=== PATIENT | female | born 1975 | race Caucasian/White ===

== ENCOUNTER 2017-04-29 07:16 | Emergency (ER) | payer OTHER ==
[2017-04-29 07:47] LABS: BILIRUBIN,URINE NEGATIVE (NEGATIVE)
[2017-04-29 07:48] LABS: HCG UR QUAL NEGATIVE; UA CHARGE (STRIP ONLY) YES; UR CULTURE IF IND NOT INDICATED
[2017-04-29] MEDS ORDERED: SODIUM CHLORIDE 0.9% 1,000 ML IV ONE (08:03)
[2017-04-29] MEDS ORDERED: HYDROmorphone 1 MG/ML SYRINGE IM STA (08:03)
[2017-04-29] MEDS ORDERED: ONDANSETRON 4 MG/2 ML VIAL IVP STA (08:03)
[2017-04-29] MEDS ORDERED: DICYCLOMINE 10 MG CAPSULE PO STA (08:04)
--- NOTE | 2017-04-29 08:07 | ED Physician Documentation ---
History of Present Illness - Stated complaint Stated Complaint: STOMACH PAIN,CHEST PAIN - Chief complaint Chief Complaint: General - History obtained from History obtained from: Patient - Additonal information Additional information: This patient is a 41-year-old female who is with a complaint of bilateral lower quadrant abdominal pain, nausea, and diarrhea. She has had these symptoms off and on for 10 years however more recently they have become more frequent. In the past the were on a monthly basis now she is getting them every week and had a particularly bad episode this morning. The pain is all lower located bilaterally in the lower quadrants. This pain is not associated with her menses usually although she does have a history of painful menses historically. These episodes are usually associated with mild to moderate diarrhea. She has never had nausea or vomiting with them. She denies any upper abdominal pain. She does not have any ear nose and throat symptoms. There is no chest pain or shortness of breath. There is no complaints of fever. She has no complaints of dysuria, hesitancy, frequency or gynecologic complaints such as dyspareunia or discharge. She saw a primary care physician recently and is currently in the process of getting a colonoscopy scheduled. Her father has Crohn's disease and she is concerned about this possibility. Review of systems: For pertinent positive and negatives in the review of systems please see the history of present illness, otherwise all other systems have been reviewed and are negative. Berenice disclaimer: Parts of this medical record were created using voice recognition technology. Because of the inherent limitations of this system, occasional same sounding word substitutions do occur and persist despite proofreading. Please read the document for context. Review of Systems Ten Systems: 10 systems reviewed and negative Constitutional: denies: Fever GI: reports: Abdominal Pain, Nausea, Diarrhea. denies: Abdominal Swelling, Vomiting, Constipation, Hematemesis, Bloody / black stool : denies: Dysuria, Frequency PD PAST MEDICAL HISTORY - Past Medical History Past Medical History: No - Past Surgical History Past Surgical History: Yes HEENT: Tonsil/Adenoidectomy - Present Medications Home Medications: Ambulatory Orders Medication Instructions Recorded Confirmed No Known Home Medications [No 04/29/17 04/29/17 Known Home Medications] - Allergies Allergies/Adverse Reactions: Allergies Allergy/AdvReac Type Severity Reaction Status Date / Time No Known Drug Allergies Allergy Verified 04/29/17 07:23 - Social History Does the pt smoke?: No Smoking Status: Never smoker Does the pt drink ETOH?: No Does the pt have substance abuse?: No Results - Vitals Vitals: Vital Signs - 24 hr 04/29/17 07:20 Temperature 36.4 C L Heart Rate 87 Respiratory 18 Rate Blood Pressure 132/78 H O2 Saturation 98 Oxygen O2 Source Room air - Labs Labs: Laboratory Tests 04/29/17 07:30 Urine Color YELLOW Urine Clarity CLEAR Urine pH 7.0 Ur Specific [place] 1.010 Urine Protein NEGATIVE Urine Glucose (UA) NEGATIVE Urine Ketones NEGATIVE Urine Occult Blood NEGATIVE Urine Nitrite NEGATIVE Urine Bilirubin NEGATIVE Urine Urobilinogen 0.2 (NORMAL) Ur Leukocyte Esterase NEGATIVE Ur Microscopic Review NOT INDICATED Urine Culture Comments NOT INDICATED Urine HCG, Qual NEGATIVE
[2017-04-29] MEDS ORDERED: HYDROmorphone 1 MG/ML SYRINGE IVP STA (08:08)
[2017-04-29] MEDS ORDERED: DICYCLOMINE 10 MG CAPSULE PO ONE (08:18)
--- NOTE | 2017-04-29 09:43 | Ultrasound Report ---
REVISED: THIS REPORT WAS ORIGINALLY SIGNED ON 04/29/2017 @ 0933. ORDERS LINKED ON 05/04/2017. PELVIC ULTRASOUND: 04/29/2017 CLINICAL INDICATION: Lower quadrant pain. TECHNIQUE: Transabdominal pelvic ultrasound performed for global evaluation. Transvaginal pelvic ultrasound performed for detailed evaluation. Real-time scanning performed and static images obtained. FINDINGS: The uterus is anteverted, measuring 10.3 x 7.0 x 6.2 cm. The endometrial echo complex measures 10 mm. Multiple leiomyomas are present. Posteriorly, there is a 4.4 x 4.2 x 3.6 cm intramural leiomyoma, and anteriorly , there is a 3.2 x 3.1 x 2.8 cm intramural leiomyoma. The ovaries are normal, with the right measuring 3.0 x 2.5 x 2.1 cm and the left measuring 3.8 x 2.5 x 2.0 cm. Trace free fluid is present. IMPRESSION: LEIOMYOMATOUS UTERUS. NORMAL OVARIES. TRACE FREE FLUID. JOB #: [id number] EXT JOB #: [id number] FELISA
[2017-04-29 11:37] VITALS: BP 130/55
== END 2017-04-29 11:37 | disposition home or self-care (01) ==
LOC: ED 07:16
DX: R10.32 Left lower quadrant pain (principal); R10.31 Right lower quadrant pain; D25.9 Leiomyoma of uterus, unspecified; R19.7 Diarrhea, unspecified
CPT/HCPCS: 76830; 76856; 81003; 81025; 93005; 99283; A9270; 80053; 81001; 83690; 85025; 87086

== ENCOUNTER 2017-07-12 07:13 | Outpatient (CLI) | payer OTHER ==
[2017-07-12 07:35] LABS: BASOPHILS # (AUTO) 0.1 10^3/uL (0.0-0.1); BASOPHILS % (AUTO) 0.9 %; EOSINOPHILS # (AUTO) 0.2 10^3/uL (0.0-0.7); EOSINOPHILS % (AUTO) 3.2 %; HCT - HEMATOCRIT 37.7 % (37.0-47.0); HGB - HEMOGLOBIN 12.7 g/dL (12.0-16.0); LYMPHOCYTES # (AUTO) 2.1 10^3/uL (1.5-3.5); LYMPHOCYTES % (AUTO) 28.5 %; MEAN CORPUSCULAR HGB CONC 33.6 g/dL (32.0-36.0); MEAN CORPUSCULAR VOLUME 83.3 fL (81.0-99.0); MEAN PLATELET VOLUME 9.1 fL (7.9-10.8); MONOCYTES # (AUTO) 0.6 10^3/uL (0.0-1.0); MONOCYTES % (AUTO) 8.2 %; NEUTROPHILS # (AUTO) 4.4 10^3/uL (1.5-6.6); NEUTROPHILS % (AUTO) 59.2 %; NUCLEATED RED BLOOD CELLS AUTO 0.1 /100WBC; RED BLOOD COUNT 4.52 10^6/uL (4.20-5.40); RED CELL DISTRIBUTION WIDTH 14.2 % (12.0-15.0); UNCORRECTED WHITE BLOOD COUNT 7.5 x10^3/uL; WHITE BLOOD COUNT 7.5 x10^3/uL (4.8-10.8)
== END 2017-07-12 07:14 | disposition home or self-care (01) ==
LOC: LAB 07:13
PROVIDERS: ATTEND Obstetrics & Gynecology
DX: Z13.0 Encounter for screening for diseases of the blood and blood-forming organs and certain disorders involving the immune mechanism (principal)
CPT/HCPCS: 36415; 85025

== ENCOUNTER 2017-08-09 11:37 | Outpatient (CLI) | payer OTHER ==
[2017-08-09 12:08] LABS: BASOPHILS # (AUTO) 0.1 10^3/uL (0.0-0.1); BASOPHILS % (AUTO) 0.9 %; EOSINOPHILS # (AUTO) 0.2 10^3/uL (0.0-0.7); EOSINOPHILS % (AUTO) 2.2 %; HCT - HEMATOCRIT 37.4 % (37.0-47.0); HGB - HEMOGLOBIN 12.4 g/dL (12.0-16.0); LYMPHOCYTES # (AUTO) 2.1 10^3/uL (1.5-3.5); MEAN CORPUSCULAR HEMOGLOBIN 27.3 pg (27.0-31.0); MEAN CORPUSCULAR HGB CONC 33.2 g/dL (32.0-36.0); MEAN CORPUSCULAR VOLUME 82.3 fL (81.0-99.0); MEAN PLATELET VOLUME 8.7 fL (7.9-10.8); MONOCYTES # (AUTO) 0.5 10^3/uL (0.0-1.0); MONOCYTES % (AUTO) 6.1 %; NEUTROPHILS # (AUTO) 5.6 10^3/uL (1.5-6.6); NEUTROPHILS % (AUTO) 65.8 %; RED BLOOD COUNT 4.55 10^6/uL (4.20-5.40); UNCORRECTED WHITE BLOOD COUNT 8.4 x10^3/uL; WHITE BLOOD COUNT 8.4 x10^3/uL (4.8-10.8)
[2017-08-09 12:18] LABS: ALBUMIN/GLOBULIN RATIO 1.3 (1.0-2.2); BILIRUBIN,TOTAL 0.4 mg/dL (0.2-1.0); CALCIUM 9.6 mg/dL (8.5-10.3); CREATININE 0.7 mg/dL (0.4-1.0); POTASSIUM 3.8 mmol/L (3.5-5.0); TOTAL PROTEIN 8.2 g/dL (6.7-8.2)
[2017-08-09 12:21] LABS: BILIRUBIN,URINE NEGATIVE (NEGATIVE)
== END 2017-08-09 11:38 | disposition home or self-care (01) ==
LOC: LAB 11:37
PROVIDERS: ATTEND Obstetrics & Gynecology
DX: Z01.812 Encounter for preprocedural laboratory examination (principal); D25.9 Leiomyoma of uterus, unspecified; N92.0 Excessive and frequent menstruation with regular cycle
CPT/HCPCS: 36415; 80053; 81003; 85025; 86850; 86900; 86901

== ENCOUNTER 2017-08-10 06:16 | Day surgery (SDC) | payer OTHER ==
--- NOTE | 2017-08-09 13:25 | HISTORY & PHYSICAL EXAMINATION ---
DATE OF ADMISSION: 08/10/2017 PREOPERATIVE DIAGNOSES: 1. Uterine leiomyomas, submucosal. 2. Menorrhagia. 3. Pelvic pain related to leiomyomas. HISTORY OF PRESENT ILLNESS: The patient is a 41-year-old 2, para 2 woman, who was seen in the emergency room in April for prolonged bleeding and pelvic pressure/pain. She had been bleeding for more than 3 months and had known uterine fibroids. The pain was intense, 7/10, and interfered with her daily activity. It had 2 characteristics, both colicky and stabbing. She failed NSAIDs and oral contraceptives. Pelvic ultrasound documented a significant-sized uterus, with leiomyomas and no ovarian pathology. The patient' s menstrual interval is every 27-28 days, with up to 3 weeks or greater flow. She uses a vasectomy contraception. Her last Pap was in 2015 and normal. She has had no abnormal Paps. PAST MEDICAL HISTORY: The patient has no chronic disease history or cardiovascular history. She no hospitalizations other than minor surgery and her children. Obstetrically, she has had 2 vaginal births without complication. PAST SURGICAL HISTORY: Tonsillectomy in 1994. ALLERGIES: NONE. MEDICATIONS: Motrin. SOCIAL HISTORY: . 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 HABITS: No tobacco, drug, or alcohol use. A coffee drinker. FAMILY HISTORY: Colon cancer, paternal grandmother, paternal grandfather. Father , Crohn disease. Endometriosis in a sister. REVIEW OF SYSTEMS: CONSTITUTIONAL: Negative. HEENT: Negative. CARDIOVASCULAR: Negative. RESPIRATORY: Negative. GENITOURINARY: Abdominal pain, with chronic diarrhea and nausea. GYNECOLOGIC: Reference HPI. MUSCULOSKELETAL: Negative. BREASTS: Negative. SKIN: Negative. NEUROLOGIC: Negative. PSYCHOLOGIC: Anxiety, with crying episodes, insomnia, and decreased energy. Occasional panic attack. PHYSICAL EXAMINATION: GENERAL: Well groomed. Pleasant. Cooperative. HEENT: EOMI. Nonicteric sclera. Dentition in good repair. NECK: Supple. No thyromegaly. RESPIRATORY: Clear. No wheeze. CARDIOVASCULAR: Regular rhythm and rate. Grade 1-2 systolic ejection murmur noted. No peripheral vascular abnormalities, such as edema or cold extremities. ABDOMEN: Soft. No organomegaly. No herniation or mass detected. LYMPHATICS: Inguinal nodes not enlarged. MUSCULOSKELETAL: Normal range of motion. No edema. No evident degenerative joint change. SKIN: Smooth and clear. No wounds or lesions noted. NEUROLOGIC: No gross neurologic abnormalities. PSYCHOLOGIC: The patient has normal preop anxiety. BREASTS: Deferred. Normal on baseline exam. PELVIC: External genitalia: Normal Bartholin gland. No lesions. Normal meatus ( based on baseline exam). Vagina: Catherine. No prolapse. No discharge (based on baseline exam). Cervix: No abnormal secretions, lesions, or ulcerations based on original exam. Uterus: Parous, retroverted, retroflexed, approximately 12 weeks' size with irregular contour, tender to manipulation. Adnexa: Difficult to assess due to uterine size (reference baseline exam). ASSESSMENT: The patient is a 41-year-old multigravida with a significant-sized uterus, and associated abnormal bleeding and pain. There is no adnexal pathology documented. We discussed alternative therapies, such as fibroid embolization or focused ultrasound, and these were rejected in favor of hysterectomy. A complete informed consent discussion of hysterectomy was accomplished. She was informed of the potential risks of bleeding, transfusion, infection, injury to urinary tract or intestines, postop pain, and prolapse later in life. All questions were answered. Overall, she is an appropriate candidate for hysterectomy. PLAN: The planned procedure is laparoscopic hysterectomy or laparoscopic- assisted vaginal hysterectomy. If there is good mobility after ligation of the uterine vessels from above, we will move to the assisted laparoscopic-assisted hysterectomy; otherwise, proceed with a total laparoscopic hysterectomy. If bleeding or other difficulties are encountered, may move to laparotomy. The patient does not have a penicillin allergy, so 2 grams of cephazolin will be given. Compression boots will be placed. The patient has significant anxiety, and it was recommended that she talk to the supervisor mail carriers. She requests lidocaine cream prior to IV insertion to minimize skin discomfort. JOB #: [id number] EXT JOB #:[id number] FELISA
[2017-08-10] MEDS ORDERED: LACTATED RINGERS 1,000 ML IV ONE ×3 (06:30→10:49)
[2017-08-10] MEDS ORDERED: ceFAZolin 2 GM/50 ML 2 GM/50 ML BAG IV ONE (06:35)
[2017-08-10 06:49] LABS: HCG UR QUAL NEGATIVE
[2017-08-10] MEDS ORDERED: BUPIVACAINE 0.25%-EPI 1:200000 PF 10 ML VIAL SUBQ ONE ×2 (08:11)
--- NOTE | 2017-08-10 09:35 | OPERATIVE REPORT ---
Operative Report - General Procedure Date: 08/10/17 Planned Procedure: LAVH, Bilateral salpingectomy, cystoscopy, possible laparotomy, possible Mc Pre-Op Diagnosis: Menorrhagia; pelvic pressure and pain; 12 week size uterus with leiomyomata Procedure Performed: Laparoscopic assisted vaginal hysterectomy; bilateral salpingectomy; cystoscopy ; modified Rizo's procedure Post Op Diagnosis: Same as above - Procedure Note Primary Surgeon: Jamal AGOSTO Secondary Surgeon: Chelsea Dupree DO Anesthesia Provider: Beau Mendez MD Anesthesia Technique: General ET tube Pathology: Uterus and tubes IV Fluids (mL): 1,200 Estimated Blood Loss (mL): 300 Urine Output (mL): 250 Drain/Tube Type: Other (Zapata catheter with clear urine) Complications: None
[2017-08-10] MEDS ORDERED: fentaNYL 100 MCG/2 ML VIAL IVP ONE (09:43)
[2017-08-10] MEDS ORDERED: ROCURONIUM 50 MG/5 ML VIAL IVP ONE (09:43)
[2017-08-10] MEDS ORDERED: ONDANSETRON 4 MG/2 ML VIAL IVP ONE (09:43)
[2017-08-10] MEDS ORDERED: PROPOFOL 200 MG/20 ML VIAL IVP ONE (09:43)
[2017-08-10] MEDS ORDERED: LIDOCAINE-PF 2% 10 ML AMP SUBQ ONE (09:43)
[2017-08-10] MEDS ORDERED: MEPERIDINE 50 MG/ML SYRINGE ONE (09:49)
[2017-08-10] MEDS: HYDROmorphone 1 MG/ML SYRINGE ONE ×2 (09:50→09:55)
[2017-08-10] MEDS: fentaNYL 100 MCG/2 ML VIAL ONE ×4 (10:03→10:29)
[2017-08-10] MEDS ORDERED: KETOROLAC 15 MG/ML VIAL ONE (10:19)
--- NOTE | 2017-08-10 10:53 | OPERATIVE REPORT ---
DATE OF SURGERY: 08/10/2017 00:00:00 PREOPERATIVE DIAGNOSES 1. Menorrhagia. 2. Pelvic pressure and pain. 3. A 12-week size uterus with leiomyomata. POSTOPERATIVE DIAGNOSES 1. Menorrhagia. 2. Pelvic pressure and pain. 3. A 12-week size uterus with leiomyomata. 4. Possible interstitial cystitis. PROCEDURES 1. Laparoscopic-assisted vaginal hysterectomy. 2. Bilateral salpingectomy. 3. Cystoscopy. 4. Modified Rizo's procedure. SURGEON: Amadou Hernandez FACOG, HEAVEN. REGULATORY LEADER: Chelsea Zhou DO, FACOG. ANESTHESIA: Beau Mendez MD. ANESTHESIA TYPE: General with ET tube placed. ESTIMATED BLOOD LOSS: 350. COMPLICATIONS: None. DRAINS: Zapata with approximately 250 mL of clear urine. FINDINGS: There are no oval vulvar or vaginal lesions noted at the time of initial inspection. The cervix is parous. The uterus was estimated about 10-12 weeks size. Laparoscopic evaluation confirms multiple fibroids, but a predominantly large posterior submucosal intramural one. The tubes appeared to be open and fluffy. Full ovaries are normal without excrescences and normal cystic activity. Postoperatively, a cystoscopy confirms 2 operative ureters. There is some glomerulization in the trigone area, possibly interstitial cystitis. Postoperative examination of the operative sites finds no bleeding. TECHNIQUE: The patient was brought to the operating room and placed in supine position for administration of general anesthesia. She was uneventfully induced and intubated. She was moved to the low dorsal lithotomy position on [facility]. She was prepped and draped in the customary sterile fashion. Timeout briefing was done per protocol. A weighted speculum was placed in the posterior vagina and the cervix visualized. The cervix was grasped with single-toothed tenaculum and gently dilated to Hegar size 7. A HUMI manipulator was uneventfully placed and inflated. Zapata was uneventfully placed. The patient's legs were then moved to the low dorsal lithotomy position. Small aliquots, 3 mL of 0.25% Marcaine with epinephrine were placed in the intended trocar insertion sites. Under the umbilical fold, a small incision was made with a scalpel and using direct visualization technique, a Visiport was uneventfully inserted. Under direct visualization, 5 mm ports were placed in the left and right lower quadrant. The abdomen was assessed and photographed. We began on the left side by tenting the tube and ovary medially. The mesenteric portion of the tube was then desiccated and divided in a sterile fashion using LigaSure. Next, the utero-ovarian ligaments and round ligaments were desiccated and divided. The LigaSure was then used to develop the bladder flap and skeletonize the uterine vessels. Uterine vessels were doubly desiccated with LigaSure and divided on the left side. This process then was repeated on the right side uneventfully. At this point, we converted to the vaginal phase. The abdomen was desufflated and the legs were moved back into the high lithotomy position. A weighted speculum was placed and a uterine manipulator removed. The cervix was grasped with 2 single-toothed tenaculums. A halo, small aliquot injections of Marcaine with epinephrine then were placed about the cervix. The cervix was circumscribed. Using blunt and sharp dissection, the anterior cul-de-sac was uneventfully entered. A right angle retractor was then placed with the bladder out of harm's way. Next, the posterior cul-de-sac was sharply entered and a Crystal retractor placed. The base of the uterosacral ligaments were grasped with Rich clamps on each side, divided and transfixed with 0 Vicryl. Next, the remaining portion of the uterosacral ligament was grasped, transected and ligated in a similar fashion. We encountered the anterior dissection. Some small tendon rolls of tissue on the left and right side were clamped, transected, suture-ligated with 0 Vicryl. The uterus then slipped out in total. The pelvic peritoneum was pursestringed with a stitch of 0 Vicryl. Next, a modified Rizo's was done by passing the uterosacral ligature stitches through the vaginal cuff superiorly and inferiorly to affix the mucosa. Next, the uterosacral ligaments were brought in the midline with a stitch of 0 Vicryl. Vaginal mucosa was closed vertically with a running stitch of 0 chromic. All sponge, needle and instrument counts were confirmed as correct. We then went to the cystoscopy phase. The Zapata was removed, and the bladder inflated with sterile normal saline. The panoramic examination was conducted and there was no bladder incursion and normal ureters. Of note, at the posterior trigone, there was glomerulization suggestive of interstitial cystitis. Photographs were taken, but no biopsy was obtained. Zapata was then replaced Next, we had a final laparoscopic view of the abdomen. There was some small oozing near the right ovarian pedicle that was desiccated with LigaSure. The abdomen was rinsed and all sites were inspected again and determined to be secure. Photographs taken. Prior to closure, the abdomen was insufflated with 400-500 mL of normal saline and all gas removed. All trocars were removed. Skin was closed with interrupted subcuticular stitches of 4-0 Monocryl. Dermabond dressing was placed. Additional 5 mL aliquots of 0.25% Marcaine with epinephrine was placed in the trocar wounds. The patient was uneventfully aroused and taken to the recovery room in stable condition. She did well and if she recovers as expected, she may go home tonight. Otherwise, she will remain as needed and Dr. Zhou will assume care of the patient. JOB #: [id number] EXT JOB #:[id number] FELISA
[2017-08-10] MEDS ORDERED: HYDROcod/ACETAM 5/325 MG TABLET ONE (10:56)
[2017-08-10 12:31] VITALS: BP 124/80
== END 2017-08-10 06:17 | disposition home or self-care (01) ==
LOC: SDS 06:16
PROVIDERS: ATTEND Obstetrics & Gynecology
PROC: 0UT7FZZ Resection of Bilateral Fallopian Tubes, Via Natural or Artificial Opening With Percutaneous Endoscopic Assistance (ICD-10-PCS; 2017-08-10)
PROC: 0UQF7ZZ Repair Cul-de-sac, Via Natural or Artificial Opening (ICD-10-PCS; 2017-08-10)
PROC: 0UT9FZZ Resection of Uterus, Via Natural or Artificial Opening With Percutaneous Endoscopic Assistance (ICD-10-PCS; principal; 2017-08-10 07:30)
DX: D25.1 Intramural leiomyoma of uterus (principal); D25.2 Subserosal leiomyoma of uterus; N88.8 Other specified noninflammatory disorders of cervix uteri; N72 Inflammatory disease of cervix uteri
CPT/HCPCS: 58552; 81025; 88307; A9270; J0690; J1170; J7120

== ENCOUNTER 2018-12-12 08:00 | Outpatient (CLI) | payer BC, OTHER ==
[2018-12-12 15:27] LABS: BILIRUBIN,URINE NEGATIVE (NEGATIVE); GLUCOSE, URINE (UA) NEGATIVE (NEGATIVE); KETONES,URINE (UA) TRACE mg/dL (NEGATIVE); LEUKOCYTE ESTERASE, URINE NEGATIVE (NEGATIVE); NITRITE,URINE NEGATIVE (NEGATIVE); OCCULT BLOOD,URINE SMALL (NEGATIVE); PROTEIN,URINE NEGATIVE (NEGATIVE); UROBILINOGEN,URINE 0.2 (NORMAL) E.U./dL (NORMAL)
[2018-12-12 15:35] LABS: BACTERIA,URINE Few /HPF (None Seen); CLARITY,URINE CLEAR (CLEAR); RBC,URINE 0-5 /HPF (0-5); SQUAMOUS EPITHELIAL CELL,UR MOD Squamous (<= Few)
== END 2018-12-12 23:59 | disposition home or self-care (01) ==
LOC: LAB.R 08:00
PROVIDERS: ATTEND Obstetrics & Gynecology
DX: R30.0 Dysuria (principal)
CPT/HCPCS: 81001; 87086

== ENCOUNTER 2018-12-13 11:59 | Outpatient (CLI) | payer BC ==
[2018-12-13 12:23] LABS: BILIRUBIN,URINE NEGATIVE (NEGATIVE); GLUCOSE, URINE (UA) NEGATIVE (NEGATIVE); KETONES,URINE (UA) TRACE mg/dL (NEGATIVE); LEUKOCYTE ESTERASE, URINE NEGATIVE (NEGATIVE); NITRITE,URINE NEGATIVE (NEGATIVE); OCCULT BLOOD,URINE TRACE-LYSE (NEGATIVE); PH,URINE 6.5 PH (5.0-7.5); PROTEIN,URINE NEGATIVE (NEGATIVE); UROBILINOGEN,URINE 0.2 (NORMAL) E.U./dL (NORMAL)
[2018-12-13 12:29] LABS: CLARITY,URINE CLEAR (CLEAR); RBC,URINE 0-5 /HPF (0-5); SQUAMOUS EPITHELIAL CELL,UR MOD Squamous (<= Few)
[2018-12-13 12:30] LABS: AMORPHOUS SEDIMENT,UR Moderate /LPF; BACTERIA,URINE None Seen /HPF (None Seen)
== END 2018-12-13 12:00 | disposition home or self-care (01) ==
LOC: LAB 11:59
PROVIDERS: ATTEND Obstetrics & Gynecology
DX: R30.0 Dysuria (principal); N80.9 Endometriosis, unspecified
CPT/HCPCS: 81001; 87086

== ENCOUNTER 2018-12-19 13:15 | Outpatient (CLI) | payer BC ==
[2018-12-19 13:33] LABS: BILIRUBIN,URINE NEGATIVE (NEGATIVE); GLUCOSE, URINE (UA) NEGATIVE (NEGATIVE); KETONES,URINE (UA) NEGATIVE (NEGATIVE); LEUKOCYTE ESTERASE, URINE NEGATIVE (NEGATIVE); NITRITE,URINE NEGATIVE (NEGATIVE); OCCULT BLOOD,URINE TRACE-LYSE (NEGATIVE); PROTEIN,URINE NEGATIVE (NEGATIVE); UROBILINOGEN,URINE 0.2 (NORMAL) E.U./dL (NORMAL)
[2018-12-19 13:43] LABS: BACTERIA,URINE Rare /HPF (None Seen); CLARITY,URINE CLEAR (CLEAR); MUCUS,URINE Few Strands; RBC,URINE None Seen /HPF (0-5); SQUAMOUS EPITHELIAL CELL,UR FEW Squamous (<= Few)
== END 2018-12-19 13:16 | disposition home or self-care (01) ==
LOC: LAB 13:15
PROVIDERS: ATTEND Obstetrics & Gynecology
DX: R30.0 Dysuria (principal); N80.9 Endometriosis, unspecified
CPT/HCPCS: 81001; 87086

== ENCOUNTER 2019-01-02 14:49 | Outpatient (CLI) | payer BC ==
[2019-01-02 15:15] LABS: BILIRUBIN,URINE NEGATIVE (NEGATIVE); GLUCOSE, URINE (UA) NEGATIVE (NEGATIVE); KETONES,URINE (UA) NEGATIVE (NEGATIVE); LEUKOCYTE ESTERASE, URINE NEGATIVE (NEGATIVE); NITRITE,URINE NEGATIVE (NEGATIVE); OCCULT BLOOD,URINE TRACE-INTA (NEGATIVE); PROTEIN,URINE NEGATIVE (NEGATIVE); UROBILINOGEN,URINE 0.2 (NORMAL) E.U./dL (NORMAL)
[2019-01-02 16:36] LABS: BACTERIA,URINE None Seen /HPF (None Seen); CLARITY,URINE CLEAR (CLEAR); RBC,URINE 0-5 /HPF (0-5); SQUAMOUS EPITHELIAL CELL,UR FEW Squamous (<= Few)
== END 2019-01-02 14:50 | disposition home or self-care (01) ==
LOC: LAB 14:49
PROVIDERS: ATTEND Obstetrics & Gynecology
DX: R30.0 Dysuria (principal); N80.9 Endometriosis, unspecified
CPT/HCPCS: 81001; 87086

== ENCOUNTER 2019-01-19 08:28 | Outpatient (CLI) | payer BC ==
--- NOTE | 2019-01-19 12:32 | Ultrasound Report ---
Reason: PAIN AT SURGICAL INCISION Procedure Date: 01/19/2019 Accession Number: [id number] / [id number] Procedure: US - Pelvic Complete CPT Code: FULL RESULT: EXAM: PELVIC ULTRASOUND EXAM DATE: 01/19/2019 09:00 AM. CLINICAL HISTORY: Pain at surgical incision. Status post hysterectomy. COMPARISON: PELVIS COMPLETE 04/29/2017 8:29 AM. TECHNIQUE: Realtime transabdominal pelvic scan performed to identify the uterus and adnexa and as an overview of other pelvic structures, with static image documentation. Transvaginal technique was not performed due to patient preference. FINDINGS: Uterus: Not seen. Right Ovary: Not seen. Left Ovary: 3.4 x 2.5 x 1.9 cm, volume 8.1 cc. Normal echotexture and blood flow. Free Fluid: None. Other: None. IMPRESSION: Postoperative pelvic ultrasound is within normal limits. RADIA
== END 2019-01-19 08:29 | disposition home or self-care (01) ==
LOC: DI 08:28
PROVIDERS: ATTEND Obstetrics & Gynecology
DX: N80.9 Endometriosis, unspecified (principal); G89.18 Other acute postprocedural pain; Z90.710 Acquired absence of both cervix and uterus
CPT/HCPCS: 76856

== ENCOUNTER 2019-01-26 14:36 | Outpatient (CLI) | payer BC ==
[2019-01-26] MEDS ORDERED: IOVERSOL 320 100 ML VIAL IVP ONE ×2 (14:45→14:51)
--- NOTE | 2019-01-27 05:56 | CT Report ---
Reason: OTHER MICROSCOPIC HEMATURIA,BLADDER PAIN,BACK PAIN Procedure Date: 01/26/2019 Accession Number: [id number] / [id number] Procedure: CT - IVP CPT Code: FULL RESULT: EXAM: CT ABDOMEN AND PELVIS WITHOUT AND WITH CONTRAST (CT IVP) EXAM DATE: 01/26/2019 02:57 PM. CLINICAL HISTORY: Bladder pain, microhematuria COMPARISONS: PELVIS COMPLETE 01/19/2019 8:47 AM. TECHNIQUE: Routine helical imaging was performed through the kidneys, ureters and bladder acquired before and after intravenous contrast. Postcontrast images are acquired using a split bolus technique. IV Contrast: 100 mL Optiray 320. Reconstructions: Coronal and sagittal. In accordance with CT protocol optimization, one or more of the following dose reduction techniques were utilized for this exam: automated exposure control, adjustment of mA and/or KV based on patient size, or use of iterative reconstructive technique. FINDINGS: Lung Bases: Unremarkable. Liver: Normal. No masses. Gallbladder/Bile Ducts: Unremarkable. Spleen: Normal. Pancreas: Normal. Adrenal Glands: Normal. Kidneys/Bladder: Right Kidney/Ureter: No renal or ureteral stones. No hydronephrosis or hydroureter. No masses. Left Kidney/Ureter: No renal or ureteral stones. No hydronephrosis or hydroureter. No masses. Bladder: No stones. No wall thickening or mass. Peritoneal Cavity/Bowel: Normal. No free fluid, free air or adenopathy. No masses or acute inflammatory process. Normal appendix. Pelvic Organs: Uterus is surgically absent. Normal appearance of the ovaries. Vasculature: No aneurysms or other significant abnormality. Bones: No significant abnormality. Other: There is a tiny fat-containing umbilical hernia. IMPRESSION: 1. No kidney stone or hydronephrosis. No suspicious renal or urinary collecting system lesion is demonstrated. 2. Prior hysterectomy. Ovaries are normal in appearance. RADIA
== END 2019-01-26 14:37 | disposition home or self-care (01) ==
LOC: DI 14:36
PROVIDERS: ATTEND Obstetrics & Gynecology
DX: R31.29 Other microscopic hematuria (principal); R39.89 Other symptoms and signs involving the genitourinary system; M54.89 Other dorsalgia; Z90.710 Acquired absence of both cervix and uterus
CPT/HCPCS: 74178; Q9967

== ENCOUNTER 2019-11-28 10:30 | Outpatient (CLI) | payer BC | END 2019-11-28 23:59 | disposition home or self-care (01) | LOC: LAB.R 10:30 | PROVIDERS: ATTEND Nurse Practitioner Obstetrics & Gynecology | DX: R31.9 Hematuria, unspecified (principal); R30.0 Dysuria | CPT/HCPCS: 87086; 87181 ==

== ENCOUNTER 2021-01-23 15:42 | Outpatient (CLI) | payer BC ==
[2021-01-23 15:58] LABS: BASOPHILS # (AUTO) 0.1 10^3/uL (0.0-0.1); BASOPHILS % (AUTO) 0.8 %; EOSINOPHILS # (AUTO) 0.1 10^3/uL (0.0-0.7); EOSINOPHILS % (AUTO) 1.4 %; HCT - HEMATOCRIT 38.8 % (37.0-47.0); HGB - HEMOGLOBIN 12.6 g/dL (12.0-16.0); LYMPHOCYTES # (AUTO) 1.8 10^3/uL (1.5-3.5); LYMPHOCYTES % (AUTO) 23.7 %; MEAN CORPUSCULAR HEMOGLOBIN 28.1 pg (27.0-31.0); MEAN CORPUSCULAR HGB CONC 32.5 g/dL (32.0-36.0); MEAN CORPUSCULAR VOLUME 86.6 fL (81.0-99.0); MEAN PLATELET VOLUME 10.6 fL (7.9-10.8); MONOCYTES # (AUTO) 0.6 10^3/uL (0.0-1.0); MONOCYTES % (AUTO) 7.1 %; NEUTROPHILS # (AUTO) 5.2 10^3/uL (1.5-6.6); NEUTROPHILS % (AUTO) 66.7 %; PLT - PLATELET COUNT 273 10^3/uL (130-450); RED BLOOD COUNT 4.48 10^6/uL (4.20-5.40); WHITE BLOOD COUNT 7.8 x10^3/uL (4.8-10.8)
[2021-01-23 16:26] LABS: THYROID STIMULATING HORMONE 0.99 uIU/mL (0.34-5.60)
== END 2021-01-23 15:43 | disposition home or self-care (01) ==
LOC: LAB 15:42
PROVIDERS: ATTEND Obstetrics & Gynecology
DX: Z13.0 Encounter for screening for diseases of the blood and blood-forming organs and certain disorders involving the immune mechanism (principal); Z13.21 Encounter for screening for nutritional disorder; Z13.29 Encounter for screening for other suspected endocrine disorder
CPT/HCPCS: 36415; 82306; 83540; 84443; 85025

== ENCOUNTER 2021-07-27 08:00 | Outpatient (CLI) | payer BC ==
--- NOTE | 2021-07-27 12:52 | XRAY Report ---
PROCEDURE: Hand 2 View LT INDICATIONS: PAIN IN LEFT HAND TECHNIQUE: 2 views of the hand(s) acquired. COMPARISON: None. FINDINGS: BONES: No acute, displaced fracture or dislocation. The carpal bones are normally aligned. SOFT TISSUES: No focal abnormality. IMPRESSION: 1.No acute osseous abnormality. Reviewed by: Olivier Powers MD on 07/27/2021 12:51 PM PDT Approved by: Olivier Powers MD on 07/27/2021 12:51 PM PDT Station ID: [id number]
== END 2021-07-27 23:59 | disposition home or self-care (01) ==
LOC: DI.S 08:00
PROVIDERS: ATTEND Nurse Practitioner
DX: M79.642 Pain in left hand (principal)

== ENCOUNTER 2021-08-04 08:00 | Outpatient (CLI) | payer BC ==
[2021-08-04 21:50] LABS: CHLAMYDIA TRACHOMATIS DNA NEGATIVE (NEGATIVE); NEISSERIA GONORRHOEAE DNA NEGATIVE (NEGATIVE); TRICHOMONAS VAGINALIS DNA NEGATIVE (NEGATIVE)
== END 2021-08-04 23:59 | disposition home or self-care (01) ==
LOC: LAB.WC 08:00
PROVIDERS: ATTEND Nurse Practitioner Obstetrics & Gynecology
DX: Z11.3 Encounter for screening for infections with a predominantly sexual mode of transmission (principal)
CPT/HCPCS: 87491; 87591; 87661

== ENCOUNTER 2021-08-06 15:52 | Outpatient (CLI) | payer BC ==
[2021-08-07 13:21] LABS: HEPATITIS C ANTIBODY NON-REACTIVE (NON-REACTIVE)
[2021-08-07 15:30] LABS: HIV AG/AB 4TH GEN NON-REACTIVE (NON-REACTIVE)
== END 2021-08-06 15:53 | disposition home or self-care (01) ==
LOC: LAB 15:52
PROVIDERS: ATTEND Nurse Practitioner Obstetrics & Gynecology
DX: Z11.3 Encounter for screening for infections with a predominantly sexual mode of transmission (principal)
CPT/HCPCS: 36415; 86803; 87389

== ENCOUNTER 2021-09-30 08:15 | Outpatient (CLI) | payer BC ==
--- NOTE | 2021-10-01 08:38 | Mammography Report ---
BILATERAL DIGITAL SCREENING MAMMOGRAM 3D/2D: 09/30/2021 CLINICAL: Baseline exam. Routine screening. No prior exams were available for comparison. The tissue of both breasts is heterogeneously dense. T his may lower the sensitivity of mammography. There are benign appearing well circumscribed masses in both breasts. No significant masses, calcifications, or other findings are seen in either breast. IMPRESSION: BENIGN There is no mammographic evidence of malignancy. A 1 year screening mammogram is recommended. This exam was interpreted at Station ID: [id number]. NOTE: For mammograms, a report in lay terms will be sent to the patient. Approximately 15% of breast malignancies will not be visualized mammographically. In the management of a palpable breast mass, a negative mammogram must not discourage biopsy of a clinically suspicious lesion. Electronically Signed By: Waylon escobedo/jorge a:09/30/2021 10:45:00 ACR BI-RADS Category 2: Benign Finding(s) 3342F PARENCHYMAL PATTERN: (D) - The breast(s) demonstrate(s) heterogeneously dense fibroglandular preet renner. BI-RADS CATEGORY: (2) - 2 RECOMMENDATION: (ANNUAL) - Recommend routine annual screening mammography. [id number] 1 year screening LATERALITY: (B)
== END 2021-09-30 08:16 | disposition home or self-care (01) ==
LOC: DI 08:15
DX: Z12.31 Encounter for screening mammogram for malignant neoplasm of breast (principal)

== ENCOUNTER 2022-08-27 08:00 | Outpatient (CLI) | payer BC ==
[2022-08-27 18:15] LABS: THYROID STIMULATING HORMONE 2.02 uIU/mL (0.34-5.60)
[2022-08-27 18:17] LABS: FREE T4 (FREE THYROXINE) 0.75 ng/dL (0.58-1.64)
[2022-08-27 21:15] LABS: ESTIMATED AVERAGE GLUCOSE 103 mg/dL (70-100); HEMOGLOBIN A1c% 5.2 % (4.27-6.07)
[2022-08-29 08:07] LABS: HBsAG SCREEN Negative (Negative); HIV SCREEN 4TH GENERATION Non Reactive (Non Reactive)
[2022-08-29 13:08] LABS: HSV 2 IGG TYPE SPEC <0.91 index (0.00-0.90)
[2022-08-30 07:08] LABS: HCV AB <0.1 s/co ratio (0.0-0.9)
[2022-08-30 10:08] LABS: VITAMIN D 25-HYDROXY 27.7 ng/mL (30.0-100.0)
[2022-08-31 03:09] LABS: RPR Non Reactive (Non Reactive)
[2022-08-31 18:07] LABS: ANTINUCLEAR ANTIBODIES IFA Negative (.)
== END 2022-08-27 23:59 | disposition home or self-care (01) ==
LOC: LAB.WC 08:00
PROVIDERS: ATTEND Nurse Practitioner
DX: M25.841 Other specified joint disorders, right hand (principal); F41.9 Anxiety disorder, unspecified; Z13.1 Encounter for screening for diabetes mellitus; R25.1 Tremor, unspecified
CPT/HCPCS: 36415; 82306; 83036; 84439; 84443; 86038; 86592; 86695; 86696; 86803; 87340; 87389

== ENCOUNTER 2022-08-27 17:01 | Outpatient (CLI) | payer BC ==
--- NOTE | 2022-08-27 22:38 | XRAY Report ---
PROCEDURE: Hand 2 View RT INDICATIONS: MASS OF RIGHT HAND JOINT TECHNIQUE: 2 views of the hand acquired. COMPARISON: None. FINDINGS: Bones: No acute fractures or dislocations. No suspicious bony lesions. Soft tissues: No suspicious soft tissue calcifications. IMPRESSION: No significant osseous abnormality at the palpable area of concern. Consider MRI for further evaluati on if indicated clinically. Reviewed by: Waylon Clark MD on 08/27/2022 10:37 PM [facility] Approved by: Waylon Clark MD on 08/27/2022 10:37 PM [facility] Station ID: [id number]
[2022-08-27 23:57] LABS: CHLAMYDIA TRACHOMATIS DNA NEGATIVE (NEGATIVE); NEISSERIA GONORRHOEAE DNA NEGATIVE (NEGATIVE); TRICHOMONAS VAGINALIS DNA NEGATIVE (NEGATIVE)
== END 2022-08-27 17:02 | disposition home or self-care (01) ==
LOC: DI 17:01
PROVIDERS: ATTEND Nurse Practitioner
DX: M25.841 Other specified joint disorders, right hand (principal); Z13.1 Encounter for screening for diabetes mellitus
CPT/HCPCS: 87491; 87591; 87661

== ENCOUNTER 2023-03-25 08:00 | Outpatient (CLI) | payer BC ==
[2023-03-25 21:59] LABS: CHLAMYDIA TRACHOMATIS DNA NEGATIVE (NEGATIVE); NEISSERIA GONORRHOEAE DNA NEGATIVE (NEGATIVE); TRICHOMONAS VAGINALIS DNA NEGATIVE (NEGATIVE)
== END 2023-03-25 23:59 | disposition home or self-care (01) ==
LOC: LAB.WC 08:00
PROVIDERS: ATTEND Nurse Practitioner
DX: Z11.3 Encounter for screening for infections with a predominantly sexual mode of transmission (principal)
CPT/HCPCS: 87491; 87591; 87661

== ENCOUNTER 2023-08-26 09:37 | Emergency (ER) | payer BC ==
[2023-08-26 10:10] VITALS: BP 125/68; O2SAT 99
--- NOTE | 2023-08-26 11:09 | XRAY Report ---
PROCEDURE: Foot 3 View RT INDICATIONS: Trauma TECHNIQUE: 3 views of the foot were acquired. COMPARISON: None. FINDINGS: Bones: No fractures or dislocations. No suspicious bony lesions. Soft tissues: No suspicious soft tissue calcifications or masses. IMPRESSION: No visualized acute fracture or dislocation. However, occult injury cannot be excluded. Recommend josesito rt interval imaging follow-up in 7-10 days as clinically indicated for additional evaluation. Reviewed by: Elyse Omalley MD on 08/26/2023 11:07 AM [facility] Approved by: Elyse Omalley MD on 08/26/2023 11:07 AM [facility] Station ID: [id number]
--- NOTE | 2023-08-26 12:55 | ED Physician Documentation ---
History of Present Illness - Stated complaint Stated Complaint: RT FOOT PX - Chief complaint Chief Complaint: Ext Problem - Additonal information Additional information: 47-year-old female presents emergency department for evaluation of several months intermittent right middle toe pain that radiates up her foot. She denies falls or trauma. No fevers swelling or redness. She does not find that it changes with footwear use. She is taken nothing for pain. Review of Systems Musculoskeletal: reports: Joint pain PD PAST MEDICAL HISTORY - Past Medical History Past Medical History: Yes Cardiovascular: None Respiratory: None Endocrine/Autoimmune: None GI: None : Frequency HEENT: Chronic vision loss Psych: None Musculoskeletal: None Derm: None - Past Surgical History Past Surgical History: Yes /[employer]: Hysterectomy HEENT: Tonsil/Adenoidectomy - Present Medications Home Medications: Ambulatory Orders Medication Instructions Recorded Confirmed No Known Home Medications 08/09/17 08/09/17 - Allergies Allergies/Adverse Reactions: Allergies Allergy/AdvReac Type Severity Reaction Status Date / Time No Known Drug Allergies Allergy Verified 08/26/23 10:08 - Social History Does the pt smoke?: No Smoking Status: Never smoker Does the pt drink ETOH?: No Does the pt have substance abuse?: No - Immunizations Immunizations are current?: Yes - POLST Patient has POLST: No PD ED PE NORMAL - General General: Alert and oriented X 3, No acute distress - Respiratory Respiratory: Clear bilaterally - Abdomen Abdomen: Normal bowel sounds, Soft, Non tender, Non distended - Extremities Extremities: Other (Right foot neurovascularly intact. No swelling or erythema. Normal movement of the foot and ankle in all planes. No pain at the base of t he fifth metatarsal. Point tenderness was elicited with palpation of the middle toe at the PIP joint.) Results - Vitals Vitals: Vital Signs - 24 hr 08/26/23 10:05 Temperature 36.7 C Heart Rate 79 Respiratory 16 Rate Blood Pressure 125/68 O2 Saturation 99 Oxygen O2 Source Room air - Rads (name of study) right foot Relevant Findings:: Final report received (No acute fracture or osseous lesion.) PD Medical Decision Making - ED course Complexity details: reviewed results, d/w patient ED course: Well-appearing 47-year-old female presents emergency department for evaluation of several months acute/subacute right middle toe pain in the absence of trauma or findings of infection. On exam point tenderness was elicited at the PIP joint of the right middle toe. And x-rays interpreted by the radiologist showed no acute bony abnormalities. However when I view the imaging I do query if there is some narrowed joint space at this region suggestive of arthritis. Patient's exam is relatively reassuring with no findings to suggest infection. Given the duration and lack of x-ray findings I doubt occult fracture. Patient was concerned that she could potentially have gout though given the duration of the symptoms I also doubt this however as I am suspicious of possibly an arthritic component I making the recommendation for Tylenol/ibuprofen [id number] use. If this does not improve the symptoms she may benefit from referral to podiatry. Otherwise usual emergent return precautions were discussed for worsening symptoms. Departure - Departure Disposition: 01 Home, Self Care Clinical Impression: Toe pain Qualifiers: Laterality: right Qualified Code(s): M79.674 - Pain in right toe(s) Condition: Stable Record reviewed to determine appropriate education?: Yes Comments: Joana the x-ray of your foot does not show any obvious fractures or dislocations. However as I discussed with you at the bedside I do query whether or not there is a narrowed joint space at the PIP joint of your middle toe. Th is may indicate some arthritis. I would recommend that you take ibuprofen 600 mg with food 2-3 times a day or alternate with Tylenol 500 mg also 2-3 times a day. You may also benefit from trying tvno-yai-geenjet lidocaine cream or even valsartan cream to see if just local pain relievers can be helpful. Otherwise I would encourage you to follow closely with your PCP or even obtain referral to a registry np. Return to the ER for any new or worsening symptoms, toe redness, swelling, fevers, or red streaking
== END 2023-08-26 13:09 | disposition home or self-care (01) ==
LOC: ED 09:37
DX: M79.674 Pain in right toe(s) (principal)
CPT/HCPCS: 99283

== ENCOUNTER 2023-11-04 10:20 | Outpatient (CLI) | payer BC ==
--- NOTE | 2023-11-04 12:06 | Mammography Report ---
BILATERAL DIGITAL SCREENING MAMMOGRAM 3D/2D WITH EXAGGERATED CC: 11/04/2023 CLINICAL: Routine screening. Comparison is made to exam dated: 09/30/2021 mammogram - [facility]. Both breasts are extremely dense, which lowers the sensitivity of mammography (category d />75% gland ular tissue). There are benign appearing masses in both breasts. No significant masses, calcifications, or other findings are seen in either breast. There has been no significant interval change. IMPRESSION: BENIGN There is no mammographic evidence of malignancy. A 1 year screening mammogram is recommended. Extremely dense breast tissue and presumed oval circumscribed benign bilateral masses can lower mammo graphic sensitivity. Based on the Tyrer Cuzick model (a risk assessment model) the patient's lifetime risk is 14.9% and he r 10 year risk is 2.9%. According to the ACR, ACS, and NCCN guidelines, an annual breast MRI exam ramonita ng with mammogram is recommended if the patient's lifetime risk is 20% or greater. This exam was interpreted at Station ID: [id number]. NOTE: For mammograms, a report in lay terms will be sent to the patient. Approximately 15% of breast malignancies will not be visualized mammographically. In the management of a palpable breast mass, a negative mammogram must not discourage biopsy of a clinically suspicious lesion. Electronically Signed By: Thierno Dillon M.D. lc/:11/04/2023 11:03:13 letter sent: No_Letter ACR BI-RADS Category 2: Benign Finding(s) 3342F PARENCHYMAL PATTERN: (VD) - The breast(s) demonstrate(s) extremely dense parenchyma, limiting the sen sitivity of mammography. BI-RADS CATEGORY: (2) - 2 Mammogram [id number] 1 year screening LATERALITY: (B)
== END 2023-11-04 10:21 | disposition home or self-care (01) ==
LOC: DI 10:20
PROVIDERS: ATTEND Nurse Practitioner
DX: Z12.31 Encounter for screening mammogram for malignant neoplasm of breast (principal); R92.333 Mammographic heterogeneous density, bilateral breasts; N63.20 Unspecified lump in the left breast, unspecified quadrant; N63.10 Unspecified lump in the right breast, unspecified quadrant